=== PATIENT | female | born 1980 | race African-American/Black ===

== ENCOUNTER 2019-11-15 14:52 | Outpatient (CLI) | payer OTHER, BC, SELFPAY ==
--- NOTE | ~2019-11-15 | XR_ITS ---
XR finger 3rd RT min 2V 11/15/2019 16:09 Indication: Fracture base of the middle phalanx Procedure: 4 views right third finger Comparison: No prior studies for comparison. Findings: There is a mildly displaced volar plate avulsion fracture ventral base right third middle p halanx. Normal mineralization. No other fractures identified. No foreign bodies. Impression: 1: Mildly displaced volar plate avulsion fracture ventral base right third middle phalanx. Reviewed, dictated and finalized at location A. REFINISHER Impression: 1: Mildly displaced volar plate avulsion fracture ventral base right third midd le phalanx.
== END 2019-11-15 14:53 | disposition home or self-care (01) ==
PROVIDERS: Visit Provider Plastic Surgery
DX: S62.622A Displaced fracture of middle phalanx of right middle finger, initial encounter for closed fracture (principal); X58.XXXA Exposure to other specified factors, initial encounter
CPT/HCPCS: 73140

== ENCOUNTER 2019-11-21 01:49 | Day surgery (SDC) | payer OTHER, SELFPAY ==
[2019-11-18 16:00] VITALS: BMI 19.5
--- NOTE | 2019-11-20 22:26 | HP_ITS ---
DATE OF SERVICE: 11/21/2019 DIAGNOSIS: Displaced fracture of the volar base of the middle phalanx of the right middle finger. HISTORY: The patient is 39. 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 There was a crush injury of some sort with hyperextension that avulsed the volar base of the middle phalanx and caused it to rotate approximately 120 degrees. This injury occurred on 10/19 and she was not seen for nearly a month by me. We have reviewed the x-rays together and impressed by the idea that this would not heal and that it is too large to leave in place and probably would continue to create edema and pain. She also understands that correction of this is somewhat difficult and the fragment may not be as stable as we would like it to be. We helped to put a screw through it into the shaft of the middle phalanx. If that does not work for this, we may do a volar plate advancement if that seems to be indicated, otherwise the fragment may just be removed. She is aware that she will have a period of therapy to follow all of this and she will find it hard to use this hand for a while. The persistence of the swelling and pain of this joint may persist for a long time. She would like to proceed. ALLERGIES: SHE HAS NO KNOWN ALLERGIES TO MEDICATION. MEDICATIONS: She takes naproxen. PAST SURGICAL HISTORY: Prior surgeries include oral surgery in last May. She had some teeth removed. She has had a tubal ligation in 2006. She does not follow with another specialist. REVIEW OF SYSTEMS: Indicates she smokes cigars. FAMILY HISTORY: Noncontributory. SOCIAL HISTORY: She lives in [place]. She works for [employer] and floor [employer]. She does not list a spouse. PHYSICAL EXAMINATION: GENERAL: She is active, very verbal, cooperative adult female in no distress. She is 5 feet 3 inches weighs 110 pounds. HEENT: Unremarkable. CHEST: Clear to auscultation. HEART: Regular rate and rhythm by palpation. ABDOMEN: Soft, nontender. Extremities: Appear normal with the exception of the right middle finger where she is stiff and then swollen at the PIP joint, particularly she is reluctant to flex and extend it, but can do fairly well. ASSESSMENT: This was a closed fracture. There are no open wounds at this time. Assessment is displaced fracture of the volar base of the middle phalanx of the right middle finger. PLAN: Open reduction, internal fixation. D I MT: Amy
[2019-11-21] VITALS (8 sets, daily range): BP systolic 123–155; BP diastolic 75–95; PULSE 59–80; RESP 14–20; TEMP 36.6–36.7; O2SAT 100; BMI 20.4
--- NOTE | ~2019-11-21 | XR_ITS ---
XR surgery orthopedic DATE: 11/21/2019 11:00 INDICATION: Middle phalanx cortical avulsion fracture TECHNIQUE: 5 spot intraoperative C-arm images of the third digit are provided. 74.6 seconds fluoroscopy time COMPARISON: 11/15/2019 right third finger FINDINGS: A screw is directed anteroposteriorly and distally through the base of the middle phalanx, exiting the dorsal proximal shaft of the middle phalanx, providing virtually anatomic position and al ignment of the previously reported anterior cortical avulsion fracture of the base of the middle phal anx. IMPRESSION: ORIF fracture at anterior base of middle phalanx with virtually anatomic position and ali gnment Reviewed, dictated and finalized at Location A. Reviewed, dictated and finalized at location B. O VISUAL COLLECTIONS COORDINATOR IMPRESSION: ORIF fracture at anterior base of middle phalanx with virtually zayra tomic position and alignment
--- NOTE | 2019-11-21 07:22 | WPDHPUPDATE1 ---
History and Physical Update Update Date/Time: 11/21/19 07:22 History and Physical has been reviewed, including an updated exam of the patient. There are NO changes in the patient's condition. Risks, benefits, and alternatives have been discussed and questions answered. Patient agrees to proceed with procedure.
--- NOTE | 2019-11-21 08:28 | WPDANESEPPF ---
Anes - Initial Pre Proc Eval Procedure: Operation Date: 11/21/19 09:30 Proposed Procedures p Open Reduction Internal Fixation Right Middle Phalanx - Mack Skinner MD Date/Time: 11/21/19 08:28 Surgeon: Mack Skinner MD Pre Op Diagnosis: Displaced Fx Right Middle Phalanx Patient Data Age: 39 Gender: F Height: 5 ft 2 in Weight: 48.53 kg Allergies Allergy/AdvReac Type Severity Reaction Status Date / Time No Known Allergies Allergy Unverified 11/18/19 16:01 Home Medications Medication Instructions Recorded Confirmed Type naproxen 500 mg PO BID PRN 11/18/19 11/18/19 History Patient hx anesthesia problems: none Family hx anesthesia problems: none PMFSH Past Medical History Medical History Smoker Anes - Eval Final PreProcedure Day of Procedure 11/21/19 08:28 Patient weight: normal Heart: regular rate and rhythm Lungs: decreased breath sounds Airway: Mallampati scale class II Neurological: alert and oriented Last oral intake: >/= 8 hours ASA classification: II Anesthesia type and monitoring: general LMA and standard monitoring Informed Consent: The patient's anesthetic plan and its attendant risks and benefits were discussed with the patient/family/POA. Questions were solicited and answers provided to the satisfaction of the patient/family/POA.
[2019-11-21] MEDS: LACTATED RINGERS 1,000 ML 30 ML IV CONT ×2 (08:30→11:15)
[2019-11-21] MEDS: LIDO 1%/EPINEPHRINE 1:100,000 20 ML VIAL INFILTRATE (09:57)
--- NOTE | 2019-11-21 11:28 | P.OPB_ITS ---
Procedure Note - Brief Procedure Note - Brief Date of procedure: 11/21/19 Pre-op diagnosis: Displaced Fx Right Middle Phalanx Post-op diagnosis: same Procedure performed: ORIF closed displaced fracture of middle phalanx of right middle finger with single 1.3 mm screw. Implants: 1.3 x 12 mm screw. Anesthesia: GLMA Surgeon: Mack Skinner MD Materials Assistant: Leah Estimated blood loss (mL): 2 Tourniquet time (min): 75 Drains: No Packing: No Pathology: none sent Complications: No immediate complications Condition: stable Disposition: PACU
--- NOTE | 2019-11-21 11:43 | P.OP_ITS ---
Procedure Note - Detailed Date of procedure: 11/21/19 Pre-op diagnosis: Displaced Fx Right Middle Phalanx Post-op diagnosis: same Procedure performed: Open reduction with internal fixation of the closed, displaced fracture of the middle phalanx of the right middle finger Description of procedure: The right middle finger was marked in preop. The patient was taken to the operating room and placed supine on the operating table. The time-out was held and confirmed. The patient was given general endotracheal anesthesia and the extremity was prepped and draped in the usual fashion. The digit was marked for a mid lateral incision based on the ulnar side. The digit was anesthetized with 1% lidocaine with epinephrine both dorsal and volar. The tourniquet was inflated to 250 mmHg. The patient had been given 2 g of Ancef IV in the holding area. The incision was made and the skin flap very carefully elevated preserving the neurovascular bundle to the radial side of the digit. The flap was elevated just past the midline of the finger. The swollen and slightly bruised area of the joint capsule was identified on the radial aspect. The capsule was incised on the distal aspect and elevated proximally exposing the fracture fragment. The fragment as expected was rotated approximately 120?. It was released from soft tissue attachments and brought out of the wound. It was intact and of good quality. It was found to be large enough to accept the screw. The fracture gap was debrided of soft tissue with the Jacob Tara. The fracture fragment was tried in different positions at the fracture site and the appropriate ary entation confirmed with C-arm images. A 1.1 mm hand drill was used to produce a screw hole through the fragment and through the dorsal cortex of the proximal shaft of the middle phalanx. The fragment was held in position with digital pressure as the 12 mm x 1.3 mm screw was passed into the drill hole. Good coaptation of the fragment and excellent stability were achieved. Visually and by C-arm images we demonstrated that the screw had did not impinge upon the head of the proximal phalanx articular surface. The capsular tissue was repaired with interrupted 4-0 Prolene sutures. The skin was closed with a running 4-0 Prolene. The tourniquet was released prior to the skin closure and the finger was dressed with an antibiotic gauze, plain gauze and wrapped against the index finger for stability. The patient is discharged home with instructions in wound care and follow-up and a prescription for hydrocodone 325. She has 14. She is also advised to use ibuprofen to control pain. Surgeon: Mack Skinner MD
== END 2019-11-21 13:33 | disposition home or self-care (01) ==
PROVIDERS: Visit Provider Plastic Surgery
PROC: (CPT 26735; principal; 2019-11-21 09:30)
DX: S62.622A Displaced fracture of middle phalanx of right middle finger, initial encounter for closed fracture (principal); W31.89XA Contact with other specified machinery, initial encounter; F17.290 Nicotine dependence, other tobacco product, uncomplicated
CPT/HCPCS: 26735; 76000; A9270; C1713; J0690; J1100; J2250; J2405; J2704; J3010; J7120

== ENCOUNTER 2020-05-21 14:00 | Outpatient (RCR) | payer OTHER, BC, SELFPAY ==
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
--- NOTE | 2020-03-25 14:48 | OTOPEVAL ---
OCCUPATIONAL THERAPY RE-EVALUATION AND PROGRESS REPORT 03/25/2020 Thank you for referring Jennifer Pickard to [facility]. Continued skilled OT indicated 2x/week for 4 weeks. Please review, sign, date and return this plan of care ALEXANDRE. I agree with and certify that the following plan of care is medically necessary. Referring Physician Date Referring Provider: Mack Skinner MD *OT Outpatient Re-Evaluation Evaluation Information Problem Diagnosis s/p ORIF (R) volar base of middle phalanx of middle finger Onset fx 10/19/19, ORIF 11/21/19 Additional Evaluation Detail Jennifer has been participating in outpatient OT x4 weeks following a finger fracture s/p delayed surgical repair and then gaps and delays in therapy. Despite having gaps in her therapy she is progressing well. As described below, she is making progress in AROM and PROM of all joints. She is very motivated and compliant with all materials. Subjective Information Patient reports that her gross Query Text:As Reported By Patient/ fist is the most she has Family been able to close and she is pleased with her progress so far. She reports improved functional use of the right hand for light activities such as painting and filing her nails and doing her hair. She states she still feels limited with strength as she is unable to do heavy lifting or gross gripping with force. Pain Assessment Timing of Pain Assessment Timing of Pain Assessment Re-assessment Pain Scale Pain Scale Used Numeric (1 - 10) Self Report Pain Assessment Right Hand(s) Reported Pain Level 4 Pain Description Burning Lowest Pain Intensity 1 Greatest Pain Intensity 5 Other Pain Aggravating Factors Wearing her splints for passive, prolonged stretching. Pain Score Pain Score 4: Self Report Upper Extremity Range of Motion Finger Range of Motion Right Index Finger MCP Joint Flexion - Active 90 Index Finger PIP Joint Flexion - Active 80 Index Finger DIP Joint Flexion - Active 80 Middle Finger MCP Joint Flexion - Active 85 Middle Finger PIP Joint Flexion - Active 75 Middle Finger PIP Joint
--- NOTE | 2020-03-30 15:03 | PCOTNOTE ---
Patient did not show to scheduled appt today. Patient reports that she was confused about her visits being authorized. Re-scheduled pt to another slot this week to make for 2x/week.
--- NOTE | 2020-04-20 13:50 | PCOTNOTE ---
Patient called and cancelled today due to being tested for COVID-19.
--- NOTE | 2020-04-23 09:56 | OTOPEVAL ---
OCCUPATIONAL THERAPY RE-EVALUATION REPORT 04/23/2020 Thank you for referring Jennifer Pickard to [facility]. Continued skilled OT recommended 2x/week for an additional 4 weeks for deficits outlined below. Please review, sign, date and return this re-evaluation report ALEXANDRE. I agree with and certify that the following plan of care is medically necessary. Referring Physician Date Referring Provider: Mack Skinner MD *OT Outpatient Re-Evaluation Evaluation Information Problem Diagnosis s/p ORIF (R) volar base of middle phalanx of middle finger Onset fx 10/19/19, ORIF 11/21/19 Additional Evaluation Detail Jennifer has been participating in outpatient OT x8 weeks following a finger fracture s/p delayed surgical repair and then gaps and delays in therapy. As described below, she is making progress with ROM and especially with strength. PROM made the most gains this assessment period and she will definitely need continued therapy for progression of strengthening to progress AROM measurements to match PROM. She is very motivated and compliant with all materials. Subjective Information Patient reports that her Query Text:As Reported By Patient/ progress has been amazing . Family She notes great improvement with ROM with bending and straightening. She notes decrease in pain and improvements with gross strengthening. She notes still having tenderness around the PIP joint. Pain Assessment Timing of Pain Assessment Timing of Pain Assessment Re-assessment Pain Scale Pain Scale Used Numeric (1 - 10) Self Report Pain Assessment Right Hand(s) Reported Pain Level 0 Lowest Pain Intensity 0 Greatest Pain Intensity 3 Pain Score Pain Score 0: Self Report Additional Pain Score Comments Patient reports marked decrease in pain with wearing passive prolonged stretching bands and straps. Upper Extremity Range of Motion Finger Range of Motion Right Index Finger MCP Joint Flexion - Active 85 Index Finger PIP Joint Flexion - Active 85 Index Finger DIP Joint Flexion - Active 75 Middle Finger MCP Joint Flexion - Active 85 Middle Finger PIP Joint Flexion - Active 75 Middle Finger PIP Joint Flexion - 95 Passive Middle Finger PIP Joint Extension - -8 Active Middle Finger PIP Joint Extension - 0
--- NOTE | 2020-05-25 12:55 | PCOTNOTE ---
Patient called due to missing her 1230 appt today, stating she just missed it . Unable to reschedule at this time due to not having availability. Plan to see Wed. for re-evaluation.
--- NOTE | 2020-05-27 15:22 | PCOTNOTE ---
This treatment is being continued on visit number [id number]. Please see documentation on both accounts to view progress. Completed interventions, outcomes, and problems have been marked as Inactive to facilitate the copying of the Care plan routine for recurring accounts.
--- NOTE | 2020-11-10 15:51 | PCOTNOTE ---
OT Documentation from 04/02: Paraffin charge needs to be added. Billing dept aware.
== END 2020-05-25 23:59 | disposition home or self-care (01) ==
LOC: ANHOT 14:00
PROVIDERS: Referring Provider Plastic Surgery; Visit Provider Plastic Surgery
DX: S62.622D Displaced fracture of middle phalanx of right middle finger, subsequent encounter for fracture with routine healing (principal)
CPT/HCPCS: 97018; 97110; 97140; 97166; 97763

== ENCOUNTER 2020-05-29 14:17 | Outpatient (CLI) | payer OTHER, BC, SELFPAY ==
--- NOTE | ~2020-05-29 | XR_ITS ---
EXAMINATION: XR finger 3rd RT min 2V DATE: 05/29/2020 14:49 INDICATION: Fracture of right hand third middle phalanx. TECHNIQUE: 4 views of right hand third digit were obtained. COMPARISON: Radiographs 11/15/2019, 11/21/2019 FINDINGS: Bone alignment is normal. No acute fracture. There is a screw in palmar base of third middl e phalanx. There are erosions of radial base of 3rd middle phalanx when compared to the intraoperativ e radiographs. There is an erosion of radial aspect of head of third proximal phalanx that is new fro m the time of surgery. The joint space is preserved at the proximal interphalangeal joint. There is s oft tissue swelling around the proximal interphalangeal joint. IMPRESSION: 1. Erosions of radial aspect of base of third middle phalanx and head of third proximal phalanx suspi cious for infection. I discussed these findings with Dr. Skinner. Reviewed, dictated and finalized at location B. IMPRESSION: 1. Erosions of radial aspect of base of third middle phalanx and head of third proximal phalanx suspicious for infection. I discussed these findings with Dr. Skinner.
== END 2020-05-29 14:18 | disposition home or self-care (01) ==
PROVIDERS: Visit Provider Plastic Surgery
DX: S62.622D Displaced fracture of middle phalanx of right middle finger, subsequent encounter for fracture with routine healing (principal); X58.XXXD Exposure to other specified factors, subsequent encounter
CPT/HCPCS: 73140

== ENCOUNTER 2020-06-03 13:30 | Outpatient (RCR) | payer OTHER, BC, SELFPAY ==
--- NOTE | 2020-05-27 13:49 | OTOPEVAL ---
OCCUPATIONAL THERAPY RE-EVALUATION REPORT 05/27/2020 Thank you for referring Jennifer Pickard to [facility].?Continued skilled OT indicated 2x/week for 4 weeks. Plan to evaluation for discharge in 4 weeks. Please review, sign, date and return this re-evaluation report ALEXANDRE. I agree with and certify that the following plan of care is medically necessary. Referring Physician Date Referring Provider: Mack Skinner MD *OT Outpatient [id number] Evaluation Information Problem Diagnosis s/p ORIF (R) volar base of middle phalanx of middle finger Onset fx 10/19/19, ORIF 11/21/19 Additional Evaluation Detail Jennifer has been participating in outpatient OT x13 weeks following a finger fracture s/p delayed ORIF with gaps in her therapy. The past month has been focusing on gripping and pinching with progressively increased resistance. Improvements noted with PIP flexion and gross strength this date. 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 Subjective Information Patient reports that since her Query Text:As Reported By Patient/ last re-evaluation on 04/23/20 Family she has noticed an improvement in ROM and functional strength. She does verbalize some new concerns about how sensitive the radial aspect of the PIP joint, noting discomfort with handshakes or when the index finger pushes against the PIP joint. She describes it as a stabbing sensation. 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 She states that being able to write and do her hair have become easier. Pain Assessment Timing of Pain Assessment Timing of Pain Assessment Assessment Pain Scale Pain Scale Used Numeric (1 - 10) Self Report Pain Assessment Right Finger, Middle Reported Pain Level 3 Pain Description Burning Other Pain Description
--- NOTE | 2020-05-27 15:22 | PCOTNOTE ---
The treatment documented on this account is a continuation of the treatment documented on visit number [id number]. Please see documentation on both accounts to view progress. The Plan of Care has been transitioned and updated within the new V#. I have addressed and agree with the discipline specific Problems, Interventions, and Goals for the current certification period. Completed interventions, outcomes, and problems have been marked as Inactive to facilitate the copying of the Care plan routine for recurring accounts.
--- NOTE | 2020-06-04 10:36 | OTOPEVAL ---
OCCUPATIONAL THERAPY DISCHARGE NOTE 06/03/2020 Jennifer presented to therapy reporting that due to recent findings on her hand x-ray she is to undergo another surgery to remove the screw in her finger. Advised the patient to stop therapy home exercise programs until she receives further recommendations from her physician. Plan to discharge from therapy at this time. Please refer to re-evaluation report from 05/27/20 for most recent progress update. Thank you for referring Jennifer Pickard to [facility]. Please review, sign, date and return this plan of care ALEXANDRE. I agree with and certify that the following plan of care is medically necessary. Referring Physician Date Referring Provider: Mack Skinner MD
== END 2020-08-24 10:40 | disposition home or self-care (01) ==
LOC: ANHOT 13:30
PROVIDERS: Referring Provider Plastic Surgery; Visit Provider Plastic Surgery
DX: Z47.89 Encounter for other orthopedic aftercare (principal); M25.641 Stiffness of right hand, not elsewhere classified
CPT/HCPCS: 97018; 97110

== ENCOUNTER 2020-06-09 02:00 | Outpatient (CLI) | payer BC, SELFPAY ==
[2020-06-09 18:23] LABS: SARS-CoV-2 RNA PCR Negative
== END 2020-06-09 02:01 | disposition home or self-care (01) ==
LOC: ANHCOVIDDT 02:01
PROVIDERS: Visit Provider Plastic Surgery
DX: Z01.812 Encounter for preprocedural laboratory examination (principal); Z20.828 Contact with and (suspected) exposure to other viral communicable diseases
CPT/HCPCS: 87635; C9803; U0003

== ENCOUNTER 2020-06-11 01:23 | Day surgery (SDC) | payer OTHER, BC, SELFPAY ==
[2020-06-05 10:14] VITALS: BMI 19.5
--- NOTE | 2020-06-10 17:20 | PM.IMHP ---
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 I first met her November 15, 2019. She was operated November 17, 2019. A subsequent xray revealed probable osteomyelitis. She is here today to remove the fixation screw and to debride any non viable bone. Review of Systems Review of Systems: All systems reviewed & are unremarkable except as noted in HPI and below Constitutional: Constitutional: Reports as per HPI Eyes: Eyes: Reports as per HPI ENT: Reports Normal hearing present Cardiovascular: Cardiovascular: Reports no additional cardiovascular complaints Respiratory: Respiratory: Reports no additional respiratory complaints Gastrointestinal: Gastrointestinal: Reports no additional gastrointestinal complaints Genitourinary: Genitourinary: Reports no additional female genitourinary complaints Musculoskeletal: Musculoskeletal: Reports no additional musculoskeletal complaints Neurologic: Reports system reviewed and no additional complaints, except as documented Psychiatric: Psychiatric: Reports no additional psychiatric complaints [facility] Social History Social History Smoking status: Current some day smoker Tobacco type: cigars Additional smoking assessment comments: 5 CIGARS/WEEK FOR 6 MONTHS Alcohol intake: current Drinks per week: 3 Spiritual care concerns: No Meds Home Medications and Allergies Home Medications Medication Instructions Recorded Confirmed Type sulfamethoxazole-trimethoprim 1 tablet PO BID 06/05/20 06/05/20 History Allergies Allergy/AdvReac Type Severity Reaction Status Date / Time No Known Allergies Allergy Unverified 06/05/20 10:14 Exam Narrative: Exam Narrative: Jennifer is alert and oriented. Const: General: no acute distress Eyes: General: appearance normal, both eyes and all related structures Neck: Neck: supple Resp: Effort & Inspection: normal respiratory effort Cardio: Rate: regular rate Rhythm: regular rhythm GI: GI Palp: Yes Soft to palpation Skin: General skin exam: normal color and no rashes or lesions noted Neuro: General: gait normal Speech: normal speech Extrem: Other: Some stiffness and swelling and tenderness remains in the operated area. Assessment and Plan Assessment and plan (1) Osteomyelitis: Code(s): M86.9 - Osteomyelitis, unspecified Status: Acute Additional Plan Removal of fixation screw right middle finger.
--- NOTE | ~2020-06-11 | XR_ITS ---
EXAMINATION: XR surgery orthopedic DATE: 06/11/2020 13:31 INDICATION: Fixation screw removal at the right middle finger TECHNIQUE: 3 fluoroscopic spot images of the right third digit were obtained during procedure perform ed by Dr. Skinner. Radiologist was not present for the imaging or procedure. The amount of fluoroscopy time used during this procedure was 0.3 minutes. COMPARISON: 11/21/2019 FINDINGS: The previously seen screw at the base of the third middle phalanx has been removed with subtle residu al lucent screw tract evident on the oblique projection. The previous fracture at the palmar base of the middle phalanx appears healed in near-anatomic alignment. Polyarticular osteoarthritis with mild to moderate joint space narrowing at the third proximal interphalangeal joint and mild at the remaini ng visualized distal interphalangeal joints. IMPRESSION: 1. Fluoroscopy utilized during screw removal at a healed fracture at the palmar aspect of the third m iddle phalanx. Reviewed, dictated and finalized at location A. IMPRESSION: 1. Fluoroscopy utilized during screw removal at a healed fracture at the palmar aspect of the third middle phalanx.
--- NOTE | 2020-06-11 07:10 | WPDHPUPDATE1 ---
History and Physical Update Update Date/Time: 06/11/20 07:10 History and Physical has been reviewed, including an updated exam of the patient. There are NO changes in the patient's condition. Risks, benefits, and alternatives have been discussed and questions answered. Patient agrees to proceed with procedure.
[2020-06-11 09:50] VITALS: BP 160/80; PULSE 87; RESP 20; TEMP 36.7; O2SAT 100
[2020-06-11] MEDS: LACTATED RINGERS 1,000 ML 30 ML IV CONT (10:15)
--- NOTE | 2020-06-11 11:00 | WPDANESEPPF ---
Anes - Initial Pre Proc Eval Procedure: Operation Date: 06/11/20 11:30 Proposed Procedures p Removal Fixation Screw Right Middle Finger - Mack Skinner MD Date/Time: 06/11/20 11:00 Surgeon: Mack Skinner MD Pre Op Diagnosis: s/p ORIF closed displaced fx middle right finger Patient Data Age: 40 Gender: F Height: 5 ft 2 in Weight: 49.7 kg Last Vital Signs Temp 36.7 C 06/11/20 09:50 Pulse 87 06/11/20 09:50 Resp 20 06/11/20 09:50 BP 160/80 H 06/11/20 09:50 Pulse Ox 100 06/11/20 09:50 Allergies Allergy/AdvReac Type Severity Reaction Status Date / Time No Known Allergies Allergy Unverified 06/11/20 10:26 Home Medications Medication Instructions Recorded Confirmed Type sulfamethoxazole-trimethoprim 1 tablet PO BID 06/05/20 06/11/20 History Patient hx anesthesia problems: none Family hx anesthesia problems: none PMFSH Past Medical History Medical History Smoker Surgical History Surgical History History of open reduction and internal fixation (ORIF) procedure Social History Social History Smoking status: Current some day smoker Tobacco type: cigars Additional smoking assessment comments: 5 CIGARS/WEEK FOR 6 MONTHS Alcohol intake: current Drinks per week: 3 Spiritual care concerns: No Anes - Eval Final PreProcedure Day of Procedure 06/11/20 11:00 Patient weight: normal Heart: regular rate and rhythm Lungs: clear to auscultation Airway: Mallampati scale class II Neurological: alert and oriented Last oral intake: >/= 8 hours ASA classification: II Emergent: no Anesthetic plan: proceed Anesthesia type and monitoring: general GIVS and standard monitoring Informed Consent: The patient's anesthetic plan and its attendant risks and benefits were discussed with the patient/family/POA. Questions were solicited and answers provided to the satisfaction of the patient/family/POA.
[2020-06-11] MEDS: MIDAZOLAM HCL 2 MG/2 ML VIAL IV PUSH (11:28)
[2020-06-11] MEDS: LIDO 1%/EPINEPHRINE 1:100,000 20 ML VIAL 8 ML INFILTRATE (12:30)
[2020-06-11] MEDS: ceFAZolin 2 GM/D5W 50 ML 2 GM/50 ML BAG IVPB (12:30)
[2020-06-11 13:45] VITALS: BP 113/60; PULSE 82; RESP 16; O2SAT 100
--- NOTE | 2020-06-11 13:53 | P.OPB_ITS ---
Procedure Note - Brief Procedure Note - Brief Date of procedure: 06/11/20 Pre-op diagnosis: s/p ORIF closed displaced fx middle right finger Post-op diagnosis: same (osteomyelitis.) Procedure performed: Removal of 1.3 mm fixation screw from middle phalanx of right middle finger Anesthesia: MAC Surgeon: Mack Skinner MD Asphalt Plant Operator: Leah Estimated blood loss (mL): 1 Tourniquet time (min): 22 Drains: No Packing: No Pathology: none sent Complications: No immediate complications Condition: stable Disposition: same day
[2020-06-11 14:15] VITALS: BP 115/65; PULSE 78; RESP 16
[2020-06-11] MEDS: ONDANSETRON INJ 4 MG/2 ML VIAL IV PUSH (14:17)
[2020-06-11 14:25] VITALS: BP 111/65; PULSE 77; RESP 14
--- NOTE | 2020-06-11 16:25 | PM.PROC ---
Procedure Note - Detailed Date of procedure: 06/11/20 Pre-op diagnosis: s/p ORIF closed displaced fx middle right finger Post-op diagnosis: same Procedure performed: Removal of 1.3 mm fixation C-wire on the right middle finger middle phalanx Description of procedure: The right middle finger was marked on the patient as she waited in preop. She was taken to the operating room where she was placed supine on the operating table. A time-out was held and confirmed. She was given IV sedation. The right middle finger was blocked with 1% lidocaine with epinephrine. The tourniquet was inflated to 250 mmHg. The radial midlateral incision was made. The palmar and dorsal skin flaps were carefully elevated.The suppleness of the subcutaneous tissue was noted. A 25 gauge needle was inserted to identify the head of the screw with the C-arm. Incision was made at the base of the middle phalanx intended to parallel the underlying collateral ligaments. The joint capsule seemed to have excellent integrity. The head of the screw was identified it was dissected slightly and the appropriate screwdriver was inserted. The screw was backed out without difficulty. It seemed to have been well seated in the bone No fluid was noted. There was no hypertrophic granulation tissue. The thickness of the capsule appeared to be appropriate for its purpose. The range of motion of the joint could be increased in both directions while under anesthesia. The site was irrigated with saline. 4 or 5 4-0 Prolene sutures were removed. The capsule was repaired with interrupted 4-0 Vicryl suture. The collateral ligaments were not otherwise disturbed. The skin was closed with running 5 0 nylon sutures. A soft bandage was applied to the finger and stabilized in the palm. The patient had been given 2 g of Ancef preop. She will continue taking her Bactrim postop period she has a prescription for hydrocodone/ APAP number 10 Surgeon: Mack Skinner MD
== END 2020-06-11 15:03 | disposition home or self-care (01) ==
PROVIDERS: Visit Provider Plastic Surgery
PROC: (CPT 20694; principal; 2020-06-11 11:30)
DX: Z47.2 Encounter for removal of internal fixation device (principal); F17.290 Nicotine dependence, other tobacco product, uncomplicated
CPT/HCPCS: 26320; A9270; J0690; J2250; J2405; J2704; J3010; J7120

== ENCOUNTER 2020-08-21 15:57 | Outpatient (CLI) | payer BC, SELFPAY ==
--- NOTE | ~2020-08-21 | XR_ITS ---
EXAMINATION: XR finger 3rd RT min 2V DATE: 08/21/2020 16:22 INDICATION: Right hand third digit injury. TECHNIQUE: 3 views of right hand third digit were obtained. COMPARISON: Right hand third digit radiographs 05/29/2020, 06/11/2020, 11/15/2019, 11/21/2019 FINDINGS: Bone alignment is normal. No acute fracture. There is mild osteoarthritis of third proximal and distal interphalangeal joints. There is an erosion of radial aspect of head of third proximal ph alanx. There is soft tissue swelling of third proximal interphalangeal joint. IMPRESSION: 1. Stable erosion of head of third proximal phalanx, consistent with osteomyelitis. 2. Mild polyarticular osteoarthritis. Reviewed, dictated and finalized at location A. ICAL NURSING ASSISTANT IMPRESSION: 1. Stable erosion of head of third proximal phalanx, consistent with osteomyeli tis. 2. Mild polyarticular osteoarthritis.
== END 2020-08-21 15:58 | disposition home or self-care (01) ==
PROVIDERS: Visit Provider Plastic Surgery
DX: S62.622A Displaced fracture of middle phalanx of right middle finger, initial encounter for closed fracture (principal); X58.XXXA Exposure to other specified factors, initial encounter; M19.041 Primary osteoarthritis, right hand
CPT/HCPCS: 73140; 97110; 97140

== ENCOUNTER 2020-09-02 14:30 | Outpatient (RCR) | payer OTHER, BC, SELFPAY ==
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
--- NOTE | 2020-08-07 13:26 | OTOPEVAL ---
OCCUPATIONAL THERAPY RE-EVALUATION REPORT 08/07/2020 Thank you for referring Jennifer Pickard to [facility].? The patient is scheduled to be seen for therapy? 2x/week for 4 weeks. Please review, sign, date and return this plan of care ALEXANDRE. I agree with and certify that the following plan of care is medically necessary. Referring Physician Date Attending Provider: Mack Skinner MD *OT Outpatient Re-Evaluation Evaluation Information Problem Diagnosis Stiff right middle finger Additional Evaluation Detail Jennifer fractured the base of the middle phalanx of the right middle finger on 10/19/19. She underwent an ORIF of the fracture on 11/21/19 with subsequent c-wire removal on . She presents today after re-evaluation 9 treatment sessions to restart AROM and initiation of gentle strengthening. Subjective Information Patient reports improved Query Text:As Reported By Patient/ ability to use the right hand Family to pick and shovel man 1/2 gallon of milk, gripping workout tools to work out, hold toothbrush, and notes improved ability to told objects with a tighter fist. She also notes that she is able to make more of a composite fist describing improved ROM in the joints of the MF. She states she has still been modifying how she picks up heavy objects such as a crock pot and bags of groceries. Pain Assessment Timing of Pain Assessment Timing of Pain Assessment Re-assessment Pain Scale Pain Scale Used Numeric (1 - 10) Self Report Pain Assessment Right Finger, Middle Reported Pain Level 0 Lowest Pain Intensity 0 Greatest Pain Intensity 5 Pain Score Pain Score 0: Self Report Additional Pain Score Comments Pain with AROM increases to 2/10. She no longer has tingling and burning sensations. PROM into flexion causes pain to increase to 5/ 10. Upper Extremity Range of Motion Finger Range of Motion Right Middle Finger MCP Joint Flexion - Active 90 Middle Finger MCP Joint Extension - 0 Active Middle Finger PIP Joint Flexi
--- NOTE | 2020-08-24 12:39 | PCOTNOTE ---
This treatment is being continued on visit number [id number]. Please see documentation on both accounts to view progress. Completed interventions, outcomes, and problems have been marked as Inactive to facilitate the copying of the Care plan routine for recurring accounts.
== END 2020-09-27 23:59 | disposition home or self-care (01) ==
LOC: ANHOT 14:30
PROVIDERS: PCP Family Medicine; Visit Provider Plastic Surgery
DX: Z48.89 Encounter for other specified surgical aftercare (principal); M25.641 Stiffness of right hand, not elsewhere classified; M25.541 Pain in joints of right hand
CPT/HCPCS: 97018; 97035; 97110; 97140; 97165

== ENCOUNTER 2020-09-29 14:40 | Outpatient (CLI) | payer OTHER, BC, SELFPAY ==
--- NOTE | ~2020-09-29 | MM_ITS ---
EXAMINATION: MM screening simin BI w nely HISTORY: Screening mammogram TECHNIQUE: Craniocaudal and mediolateral oblique 3-D tomosynthesis images were obtained and synthetic 2-D images were generated. CAD analysis was submitted and interpreted. COMPARISON: None, baseline BREAST PARENCHYMAL COMPOSITION: The breasts are extremely dense, which lowers the sensitivity of mamm ography. FINDINGS: There is no evidence of suspicious mass, calcification, or architectural distortion to sugg est malignancy in either breast. IMPRESSION: 1. No mammographic evidence of malignancy. 2. Recommend routine screening mammography in one year. BI-RADS Category 1: Negative Reviewed, dictated and finalized at location A. CULATION OFFICER
== END 2020-09-29 14:41 | disposition home or self-care (01) ==
PROVIDERS: PCP Family Medicine; Visit Provider Family Medicine
DX: Z12.31 Encounter for screening mammogram for malignant neoplasm of breast (principal)
CPT/HCPCS: 77063; 77067

== ENCOUNTER 2020-10-30 14:00 | Outpatient (RCR) | payer OTHER, BC, SELFPAY ==
--- NOTE | 2020-08-24 12:39 | PCOTNOTE ---
The treatment documented on this account is a continuation of the treatment documented on visit number [id number]. Please see documentation on both accounts to view progress. The Plan of Care has been transitioned and updated within the new V#. I have addressed and agree with the discipline specific Problems, Interventions, and Goals for the current certification period. Completed interventions, outcomes, and problems have been marked as Inactive to facilitate the copying of the Care plan routine for recurring accounts.
--- NOTE | 2020-09-02 15:36 | OTOPEVAL ---
OCCUPATIONAL THERAPY RE-EVALUATION Thank you for referring Jennifer Pickard to [facility].? The patient is scheduled to be seen for therapy? 2x/week for 4 weeks. Please review, sign, date and return this plan of care ALEXANDRE. I agree with and certify that the following plan of care is medically necessary. Referring Physician Date Referring Provider: Mack Skinner MD *OT Outpatient Evaluation Evaluation Information Problem Diagnosis s/p ORIF (R) volar base of middle phalanx of middle finger Onset fx 10/19/19, ORIF 11/21/19 Additional Evaluation Detail Jennifer has been participating in outpatient OT x9 weeks following pin removal of the right middle finger. Healing also was delayed due to dx of osteomyelitis. The past month has been focusing on gripping and pinching with progressively increased resistance with a variety of tools. Patient's functional strength and ability to utilize various sized tools has made excellent progress over the last month. Subjective Information Patient reports improved Query Text:As Reported By Patient/ ability to use the right hand Family to open jars, juice and soda tops, writing, being able to lift heavier pots/pans while cooking, picking up and breaking branches in her yard, and holding and using a finger nail file. She also notes decreased sensitivity noted by being able to tolerate vibration over the scar site during scar massaging and being able to tolerate the feeling of grooves on lids and jars on the scar site also. She does state that she is sometimes unable to open some containers /lids. She does note that she does experience stiffness at night and cold weather tends to affect the PIP joint causing an aching pain. Pain Assessment
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
--- NOTE | 2020-09-23 14:26 | PCPTNOTE ---
Patient did not show up for scheduled appointment this date.Called pt who states she looked at the wrong day for the time.
--- NOTE | 2020-09-30 14:13 | OTOPEVAL ---
OCCUPATIONAL THERAPY DISCHARGE NOTE 09/30/2020 Patient presents for re-evaluation after 12 weeks of therapy following c-wire removal secondary to osteomyelitis dx. Therapy has been focusing on pain mgmt and education, strengthening, and progression of HEP. Patient is independent with all materials at this time. No further skilled OT indicated as patient appears to have reached her maximum therapy benefit for the right hand. It is recommended that she continue to treat the joint pain with heat, ROM, and theraputty. Also recommended home paraffin for pain control and regular use of gloves in the winter as cold weather appears to exacerbate her pain. Thank you for referring Jennifer Pickard to [facility].? Please review, sign, date and return this plan of care ALEXANDRE. I agree with and certify that the following plan of care is medically necessary. Referring Physician Date Referring Provider: Mack Skinner MD *OT Outpatient Re-Evaluation Evaluation Information Problem Diagnosis s/p ORIF (R) volar base of middle phalanx of middle finger Onset fx 10/19/19, ORIF 11/21/19 Additional Evaluation Detail Osteomyelitis dx 05/2020 Subsequent c-wire removal 06/11/20 Subjective Information Patient states my strength is Query Text:As Reported By Patient/ amazing , but notes Family difficulties with full ROM due to stiffness and joint pain. She states that as the weather gets colder, her finger feels more stiff. Functionally she states she is still unable to open juice containers and has difficulty carrying grocery bags with a hook grasp. She verbalizes concerns about having constant pain. Pain Assessment Timing of Pain Assessment Timing of Pain Assessment Re-assessment Pain Scale Pain Scale Used Numeric (1 - 10) Self Report Pain Assessment Right Finger, Middle Reported Pain Level 5 Pain Description Numbness Pain Frequency Chronic,Continuous Lowest Pain Intensity 3 Greatest Pain Intensity 6 Pain Score Pain Score 5: Self Report Interventions Used Interventions Used By Clinicians Education Upper Extremity Range of Motion Finger Range of Motion Right Middle Finger MCP Joint Flexion - Active 90 Middle Finger PIP Joint Flexion - Active 85 Middle Finger PIP Joint Extension - -10 Active Middle Finger DIP Joint Flexion - Active 70 Little Finger Tip to Distal Palmar 3 Crease - Active Finger Range of Motion Comments No changes in AROM of the right middle fing
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
--- NOTE | 2020-10-20 11:24 | PCPTNOTE ---
Patient did not show up for scheduled appointment this date. States she had the wrong time for her appt. She states she did not feel comfortable coming back after her last visit and the discussion about her insurance. She has contacted her insurance company regarding therapy.
--- NOTE | 2020-10-30 17:02 | PTOPEVAL ---
PHYSICAL THERAPY DISCHARGE SUMMARY Thank you for referring Jennifer Pickard to [facility].? Jennifer has received 10 visits in PT. She has been provided with HEP and education in regards to body mechanics with ADLs and IADLs. I agree with Jennifer's discharge from PT. Referring Physician Date Admitting Provider: Attending Provider: Referring Provider: Ruth Marlow MD *PT Outpatient Evaluation Start: 09/03/20 09:11 Freq: Status: Active Protocol: Document 10/30/20 14:10 SETH (Rec: 10/30/20 15:07 SETH [id number]) Therapy Assessment Status Assessment Status Assessment Status Discharge Evaluation Information Problem Subjective Information Jennifer reports that recently Query Text:As Reported By Patient/ sleeping has been okay - when Family pain intensifies it is difficult to sleep. Sitting is worse position for her. Ther ex ball exercises have been helpful with her pain. Trying to be more mindful to perform lifting activities correctly. Pain Assessment Timing of Pain Assessment Timing of Pain Assessment Assessment Pain Scale Pain Scale Used Numeric (1 - 10) Self Report Pain Assessment Bilateral Lower Back Reported Pain Level 3 Lowest Pain Intensity 3 Greatest Pain Intensity 5 Pain Score Pain Score 3: Self Report Interventions Used Interventions Used By Clinicians Exercise,Manual Therapy Techniques Cervical and Lumbar ROM Lumbar ROM Lumbar Flexion (0-90) 70 Query Text:Active in Degrees Lumbar Extension (0-40) 35 Query Text:Active in Degrees Lumbar Lateral Flexion Right (0-40) 30 Query Text:Active in Degrees Lumbar Lateral Flexion Left (0-40) 35 Query Text:Active in Degrees Cervical and Lumbar Muscle Testing Lumbar Strength Upper Abdominal Strength 5 Normal Lower Abdominal Strength 3+Fair+ Upper Back Extension 5 Normal Lower Extremity Muscle Strength Testing Hip Strength Bilateral Hip Flexion Strength 5 Normal Hip Extension Strength 4 Good Hip Abduction Strength 4 Good Hip Medial Rotation Strength 5 Normal Hip Lateral Rotation Strength 5 Normal Palpation Assessment Palpation Palpation P-A tenderness present R sacral base, R L5 transverse process, R L4 transverse process, L5,4 spinous process - decreased mobility L 5,4 rotate
== END 2020-11-02 13:35 | disposition home or self-care (01) ==
LOC: ANHPT 14:00
PROVIDERS: PCP Plastic Surgery; Referring Provider Plastic Surgery; Visit Provider Plastic Surgery
DX: Z47.89 Encounter for other orthopedic aftercare (principal); M25.641 Stiffness of right hand, not elsewhere classified
CPT/HCPCS: 97014; 97018; 97035; 97110; 97112; 97140; 97162; 97530; 97535; G0283